=== PATIENT | female | born 1950 | race Caucasian/White ===

== ENCOUNTER 2016-11-21 12:41 | Emergency (ER) | payer OTHER ==
[2016-11-21 12:47] VITALS: TEMP 98.2
--- NOTE | 2016-11-21 12:55 | CPEKG ---
Heart Rate: 61 RR Interval: 984 P-R Interval: 169 QRSD Interval: 78 QT Interval: 396 QTC Interval: 399 P Franklin: -18 QRS Franklin: 64 T Wave Franklin: 39 EKG Severity - NORMAL ECG - EKG Impression: SINUS RHYTHM Electronically Signed By: Du Dan 22-Nov-2016 09:26:20
[2016-11-21] MEDS ORDERED: NS 1,000 ML IV ONE (12:59)
[2016-11-21 13:07] LABS: % IMMATURE GRANULYOCYTES 0.4 % (0.0-1.1); ABSOLUTE IMMATURE GRANULOCYTES 0.02 10^3/uL (0.00-0.10); ADD DIFF? NO; ADD MORPH? NO; ADD SCAN? NO; ATYPICAL LYMPHOCYTE FLAG 20 (0-99); FRAGMENT RBC FLAG 0 (0-99); HEMATOCRIT 44.3 % (38.0-47.0); HEMOGLOBIN 14.8 g/dL (12.6-16.3); LEFT SHIFT FLG 0 (0-99); LIPEMIA HEMOLYSIS FLAG 80 (0-99); MEAN CELL HEMOGLOBIN 30.7 pg (27.9-34.1); MEAN CELL HEMOGLOBIN CONCENTR. 33.4 g/dL (32.4-36.7); MEAN CELL VOLUME 91.9 fL (81.5-99.8); MEAN PLATELET VOLUME 10.2 fL (8.7-11.7); PLATELET CLUMPS FLAG 0 (0-99); PLATELET COUNT 202 10^3/uL (150-400); RED BLOOD CELL COUNT 4.82 10^6/uL (4.18-5.33); RED CELL DISTRIBUTION WIDTH 12.4 % (11.5-15.2)
--- NOTE | 2016-11-21 13:13 | EDPHY ---
HPI/HX/ROS/PE/MDM Narrative: CHIEF COMPLAINT: Chest pain. HPI: The patient is a 66-year-old female who complains of exertional chest pain that started while the patient was going for her regular walk today. She felt short of breath. She developed sudden onset of diffuse weakness and felt near syncopal. She states she felt a similar chest pressure yesterday while walking , no associated shortness of breath or palpitations at that time. She notes an ongoing numbing sensation to bottom of her mouth. The patient has been weening off Progesterone and Estrogen and completely stopped these last week. She denies recent sickness. Patient is otherwise healthy. REVIEW OF SYSTEMS: Aside from elements discussed in the HPI, a comprehensive 10-point review of systems was reviewed and is negative. PMH: Denies. SOCIAL HISTORY: . Retired teacher. PHYSICAL EXAM: General: Patient is alert, in no acute distress. ENT: Eyes are normal to inspection. ENT inspection normal. Neck: Normal inspection. Full range of motion. Respiratory: No respiratory distress. Breath sounds normal bilaterally. Cardiovascular: Regular rate and rhythm. Strong peripheral pulses. Abdomen: The abdomen is nontender to palpation. There are no peritoneal signs. There are normal bowel sounds. Back: Normal to inspection. No tenderness to palpation. Skin: Normal color. No rash. Warm and dry. Extremities: Normal appearance. Full range of motion. Neuro: Oriented x3. Normal motor function. Normal sensory function. ED Course: Plan for cardiac workup including EKG, chest x-ray, and lab work. I ordered CT head due to complain of sudden weakness and numbing sensation in her mouth. EKG was ordered and interpreted by myself, sinus rhythm. Please see [place] [facility] for official reading. Chest x-ray is negative for acute findings. Lab work is completely normal. MDM: This patient presents with generalized subjective weakness and fatigue, with a normal objective neuro exam. Her CTH is negative. I see no signs of ACS, PE, PNA. I offered patient admission to the hospital for further testing but she declines. She understands that we are unable to rule out cardiac or other potentially life-threatening etiology of her symptoms without further testing. We discussed strict return precautions. - Data Points Imaging Results: Imaging Impressions Chest X-Ray 11/21/16 13:32 Impression: Possible airways disease. Otherwise negative. Imaging: Discussed imaging studies w/ dock supervisor Radiologist, I viewed and interpreted images myself Laboratory Results: Laboratory Results 11/21/16 12:55 11/21/16 12:55 11/21/16 11/21/16 11/21/16 12:55 12:55 12:55 WBC 5.49 10^3/uL 10^3/uL (3.80-9.50) RBC 4.82 10^6/uL 10^6/uL (4.18-5.33) Hgb 14.8 g/dL g/dL (12.6-16.3) Hct 44.3 % % (38.0-47.0) MCV 91.9 fL fL (81.5-99.8) MCH 30.7 pg pg (27.9-34.1) MCHC 33.4 g/dL g/dL (32.4-36.7) RDW 12.4 % % (11.5-15.2) Plt Count 202 10^3/uL 10^3/uL (150-400) MPV 10.2 fL fL (8.7-11.7) Neut % (Auto) 61.5 % % (39.3-74.2) Lymph % (Auto) 27.1 % % (15.0-45.0) [place] % (Auto) 6.4 % % (4.5-13.0) Eos % (Auto) 3.3 % % (0.6-7.6) Baso % (Auto) 1.3 % % (0.3-1.7) Nucleat RBC Rel Count 0.0 % % (0.0-0.2) Absolute Neuts (auto) 3.38 10^3/uL 10^3/uL (1.70-6.50) Absolute Lymphs (auto) 1.49 10^3/uL 10^3/uL (1.00-3.00) Absolute Monos (auto) 0.35 10^3/uL 10^3/uL (0.30-0.80) Absolute Eos (auto) 0.18 10^3/uL 10^3/uL (0.03-0.40) Absolute Basos (auto) 0.07 10^3/uL 10^3/uL (0.02-0.10) Absolute Nucleated RBC 0.00 10^3/uL 10^3/uL (0-0.01) Immature Gran % 0.4 % % (0.0-1.1) Immature Gran # 0.02 10^3/uL 10^3/uL (0.00-0.10) Sodium 141 mEq/L mEq/L (134-144) Potassium 4.1 mEq/L mEq/L (3.5-5.2) Chloride 105 mEq/L mEq/L (97-110) Carbon Dioxide 22 mEq/l mEq/l (22-31) Anion Gap 14 mEq/L mEq/L (8-16) BUN 23 mg/dL mg/dL (7-23) Creatinine 0.9 mg/dL mg/dL (0.6-1.0) Estimated GFR > 60 Glucose 101 mg/dL H mg/dL (70-100) Calcium 9.9 mg/dL mg/dL (8.5-10.4) Troponin I < 0.012 ng/mL ng/mL (0-0.034) Medications Given: Discontinued Medications Sodium Chloride (Ns) 1,000 mls @ 0 mls/hr IV ONCE ONE PRN Reason: Wide Open Stop: 11/21/16 13:00 Last Admin: 11/21/16 13:07 Dose: 1,000 mls General Time Seen by Provider: 11/21/16 12:49 Initial Vital Signs: Initial Vital Signs Temperature (C) 36.8 C 11/21/16 12:45 Heart Rate 62 11/21/16 12:45 Respiratory Rate 18 11/21/16 12:45 Blood Pressure 130/72 H 11/21/16 12:45 O2 Sat (%) 98 11/21/16 12:45 O2 Delivery Mode Room Air Allergies/Adverse Reactions: acetaminophen [From Percocet] Allergy (Verified 11/21/16 12:44) oxycodone [From Percocet] Allergy (Verified 11/21/16 12:44) Home Medications: Medication Instructions Recorded NK [No Known Home Meds] 11/21/16 Departure - Departure Disposition: Home, Routine, Self-Care Clinical Impression: Exertional chest pain Condition: Good Instructions: Chest Pain (ED) Additional Instructions: Follow-up with your primary doctor within 72 hours. Return to the Emergency Department for fever, chest pain, shortness of breath, increasing pain or other worsening of condition. Follow up with a sharepoint solutions developer for further testing, as soon as possible, within one week. As we discussed, it is impossible to fully rule out heart disease as the cause of your chest pain in the emergency department. We would be happy to reevaluate you and observe you in the hospital at any time. Referrals: Jessica Costello MD [Primary Care Provider] - As per Instructions Report Scribed for: Gentry Curiel Report Scribed by: Herminia Reese Date of Report: 11/21/16 Time of Report: 13:16 Physician Review and Approval Statement: Portions of this note were transcribed by a medical management trainer. I personally performed a history, physical exam, medical decision making, and confirmed accuracy of information the transcribed note.
[2016-11-21 13:24] LABS: ANION GAP 14 mEq/L (8-16); CALCIUM 9.9 mg/dL (8.5-10.4); CARBON DIOXIDE 22 mEq/l (22-31); CHLORIDE 105 mEq/L (97-110); CREATININE 0.9 mg/dL (0.6-1.0); GLOMERULAR FILTRATION RATE > 60; GLUCOSE 101 mg/dL (70-100); POTASSIUM 4.1 mEq/L (3.5-5.2); SODIUM 141 mEq/L (134-144)
[2016-11-21 14:21] VITALS: RESP 16; O2SAT 96
[2016-11-21 15:15] VITALS: BP 130/58; PULSE 61
== END 2016-11-21 15:14 | disposition home or self-care (01) ==
DX: R07.89 Other chest pain (principal)

== ENCOUNTER → 2017-01-13 | Outpatient (CLI) | payer OTHER ==
[~2017-01-13] MED LIST: GADOBUTROL 10 ML VIAL IVP ONE
== END ==
LOC: FIMAGING 18:48
PROVIDERS: ATTEND Psychiatry & Neurology Neurology
DX: R29.810 Facial weakness (principal); R13.10 Dysphagia, unspecified
CPT/HCPCS: 70553; A9585

== ENCOUNTER → 2017-01-23 | Outpatient (CLI) | payer OTHER | PROVIDERS: ATTEND Psychiatry & Neurology Neurology | DX: R13.10 Dysphagia, unspecified (principal); R63.3 Feeding difficulties | CPT/HCPCS: 74230; 92611; G8996; G8997; G8998 ==

== ENCOUNTER → 2017-03-10 | Outpatient (CLI) | payer OTHER | LOC: FIMAGING 19:44 | PROVIDERS: ATTEND Dentist Oral and Maxillofacial Surgery | DX: R22.1 Localized swelling, mass and lump, neck (principal) | CPT/HCPCS: 70543; A9585 ==

== ENCOUNTER → 2017-04-01 | Outpatient (CLI) | payer OTHER | LOC: FIMAGING 15:47 | PROVIDERS: ATTEND Internal Medicine | DX: Z12.31 Encounter for screening mammogram for malignant neoplasm of breast (principal); Z80.3 Family history of malignant neoplasm of breast | CPT/HCPCS: G0202 ==

== ENCOUNTER → 2017-04-10 | Outpatient (CLI) | payer OTHER | LOC: CIMAGING 15:42 | PROVIDERS: ATTEND Obstetrics & Gynecology | DX: N95.0 Postmenopausal bleeding (principal); Z79.890 Hormone replacement therapy; R93.8 Abnormal findings on diagnostic imaging of other specified body structures | CPT/HCPCS: 76856-PO ==

== ENCOUNTER → 2018-04-01 | Outpatient (CLI) | payer OTHER | LOC: FIMAGING 15:20 | PROVIDERS: ATTEND Internal Medicine | DX: Z12.31 Encounter for screening mammogram for malignant neoplasm of breast (principal); Z80.3 Family history of malignant neoplasm of breast ==